=== PATIENT | female | born 1985 ===

== ENCOUNTER 2020-07-24 01:17 | Outpatient (CLI) | payer OTHER, SELFPAY ==
[2020-07-24 19:19] LABS: SARS-CoV-2 RNA PCR Negative
== END 2020-07-24 01:18 | disposition home or self-care (01) ==
LOC: ANHCOVIDDT 01:17
PROVIDERS: PCP Orthopaedic Surgery; Visit Provider Obstetrics & Gynecology
DX: Z01.812 Encounter for preprocedural laboratory examination (principal); Z20.822 Contact with and (suspected) exposure to COVID-19
CPT/HCPCS: C9803; U0003; U0005

== ENCOUNTER 2020-07-25 08:26 | Outpatient (CLI) | payer OTHER, SELFPAY ==
[2020-07-25 08:49] LABS: Hematocrit 44.9 % (37.0-47.0); Hemoglobin 14.8 g/dL (12.0-15.0); Mean Corpuscular Hemoglobin 30.6 pg (26-34); Mean Corpuscular Volume 92.8 fl (80-100); Mean Platelet Volume 9.6 fl (7.4-10.4); Platelet Count Result 272 k/mm3 (150-375); Red Blood Count 4.84 M/mm3 (4.2-5.4); Red Cell Distribution Width 12.8 % (11.5-14.5); White Blood Count 7.8 K/mm3 (4.5-10.0)
== END 2020-07-25 08:27 | disposition home or self-care (01) ==
LOC: ANHSURGERY 08:28
PROVIDERS: PCP Nurse Practitioner Family; Visit Provider Obstetrics & Gynecology
DX: D21.9 Benign neoplasm of connective and other soft tissue, unspecified (principal); Z01.812 Encounter for preprocedural laboratory examination
CPT/HCPCS: 36415; 85027; 86850; 86900; 86901

== ENCOUNTER 2020-07-27 00:22 | Day surgery (SDC) | payer OTHER, SELFPAY ==
[2020-07-24 09:41] VITALS: BMI 34.6
--- NOTE | 2020-07-24 10:04 | P.HP_ITS ---
H&P: HPI History of Present Illness Date/Time: 07/24/20 10:04 Chief Complaint: fibroids Narrative: Jigna Dumont is a 34 year old female who is admitted for robotic total value rectum E and bilateral salp ingectomy secondary to enlarged fibroid uterus. She has a uterus that appears to be about a 1000 g. Risks and benefits reviewed including not exclusive of , aspiration pneumonia, bleeding, transfusion, perforation injury to bowel, bladder, ureters, or other internal organs with need for laparotomy. She received the ACOG handout entitled hysterectomy as well as advance she handout. She had all questions answered. She asked to proceed Review of Systems Review of Systems: All systems reviewed & are unremarkable except as noted in HPI and below PMFSH Family History Family History Father Hypertension Other Cerebrovascular accident Family history of arthritis Social History Social History Smoking status: Never smoker Second hand tobacco smoke exposure: No Smoking end date: 06/22/88 Alcohol intake: current Drinks per week: 6 Substance use: never Spiritual care concerns: No Meds Home Medications and Allergies Home Medications Medication Instructions Recorded Confirmed Type ibuprofen 400 mg PO Q6H PRN 07/24/20 07/24/20 History lactobacillus combination no.8 3,000 mmu cells PO DAILY 07/24/20 07/24/20 History [Adult Probiotic] ozapsjoajqcr-iow-vrkc-FA-vit K 1 tablet PO DAILY 07/24/20 07/24/20 History [Adults Multivitamin] norethindrone (contraceptive) 0.35 mg PO DAILY 07/24/20 07/24/20 History [Incassia] Allergies Allergy/AdvReac Type Severity Reaction Status Date / Time No Known Allergies Allergy Unverified 07/24/20 09:42 Exam Const: General: no acute distress Eyes: General: appearance normal, both eyes and all related structures Neck: Neck: supple and no JVD Thyroid: thyroid normal Resp: Effort & Inspection: normal respiratory effort Auscultation: clear to auscultation bilaterally Cardio: Rate: regular rate Rhythm: regular rhythm GI: Inspection: non-distended GI Palp: Yes Soft to palpation, No Tenderness to palpation present (GI) and No Guarding due to palpation present (GI) Auscultation: normal bowel sounds : General: Yes bladder normal to inspection External Female Exam: normal external appearance Speculum Exam - Vagina: normal appearance of the vagina Speculum Exam - Cervix: normal appearance of the cervix Bimanual exam- vagina & uterus: enlarged Skin: General skin exam: no rashes or lesions noted Extrem: General: normal to inspection and no edema Psych: Mental Status: mental status grossly normal Affect: normal affect Assessment and Plan Additional Plan impression: Symptomatic uterine fibroids Plan: Robotic total vaginal hysterectomy and bilateral salpingectomy
--- NOTE | 2020-07-26 16:38 | WPDANESEPPF ---
Anes - Initial Pre Proc Eval Procedure: Operation Date: 07/27/20 07:30 Proposed Procedures p Robotic Assisted Total Vaginal Hysterectomy With Bilateral Salpingectomy - Chris Gonzalez MD Date/Time: 07/26/20 16:38 Surgeon: Chris Gonzalez MD Pre Op Diagnosis: Enlarged Uterus,Fibroids,Pain Patient Data Age: 34 Gender: F Height: 1.7 m Weight: 100.24 kg Allergies Allergy/AdvReac Type Severity Reaction Status Date / Time No Known Allergies Allergy Unverified 07/24/20 09:42 Home Medications Medication Instructions Recorded Confirmed Type ibuprofen 400 mg PO Q6H PRN 07/24/20 07/24/20 History lactobacillus combination no.8 3,000 mmu cells PO DAILY 07/24/20 07/24/20 History [Adult Probiotic] cazgyhacnxuh-bip-iryn-FA-vit K 1 tablet PO DAILY 07/24/20 07/24/20 History [Adults Multivitamin] norethindrone (contraceptive) 0.35 mg PO DAILY 07/24/20 07/24/20 History [Incassia] Patient hx anesthesia problems: none Family hx anesthesia problems: none PMFSH Past Medical History Medical History (Updated 07/26/20 @ 16:39 by Godwin Abbott MD) Obesity Family History Family History Father Hypertension Other Cerebrovascular accident Family history of arthritis Social History Social History Smoking status: Never smoker Second hand tobacco smoke exposure: No Smoking end date: 06/22/88 Alcohol intake: current Drinks per week: 6 Alcohol use details: MIXED DRINKS Substance use: never Living arrangements: with family Spiritual care concerns: No Anes - Eval Final PreProcedure Day of Procedure 07/26/20 16:38 Patient weight: obese Heart: regular rate and rhythm Lungs: clear to auscultation and normal air movement Airway: Mallampati scale class II Neurological: alert and oriented Last oral intake: >/= 8 hours ASA classification: II Emergent: no Anesthetic plan: proceed Anesthesia type and monitoring: general ETT Informed Consent: The patient's anesthetic plan and its attendant risks and benefits were discussed with the patient/family/POA. Questions were solicited and answers provided to the satisfaction of the patient/family/POA.
[2020-07-27] VITALS (16 sets, daily range): BP systolic 109–154; BP diastolic 66–98; PULSE 73–111; RESP 14–18; TEMP 36.2–37.2; O2SAT 93–100
[2020-07-27] MEDS: KETOROLAC 15 MG/ML VIAL (*BKC) IV PUSH (06:32)
[2020-07-27] MEDS: ACETAMINOPHEN 500 MG TABLET 1000 MG PO (06:32)
[2020-07-27] MEDS: LACTATED RINGERS 1,000 ML 30 ML IV CONT ×2 (06:38→09:27)
--- NOTE | 2020-07-27 07:00 | WPDHPUPDATE1 ---
History and Physical Update Update Date/Time: 07/27/20 07:00 History and Physical has been reviewed, including an updated exam of the patient. There are NO changes in the patient's condition. Risks, benefits, and alternatives have been discussed and questions answered. Patient agrees to proceed with procedure.
[2020-07-27] MEDS: ceFAZolin 2 GM/D5W 50 ML 2 GM/50 ML BAG IVPB (07:24)
--- NOTE | 2020-07-27 09:19 | P.OP_ITS ---
Procedure Note - Detailed Date of procedure: 07/27/20 Pre-op diagnosis: Enlarged Uterus,Fibroids,Pain Surgeon: Chris Gonzalez MD Postop diagnosis: Enlarged uterus/fibroids/pain Procedure: Robotic total vaginal hysterectomy and bilateral salpingectomies Anesthesia: General endotracheal EBL: 25cc Complications: None Findings: Uterus with multiple large fibroids weighing more than 500 g. Normal-appearing tubes and ovaries Description of procedure the patient was prepped and draped in the normal sterile fashion placed in dorsal lithotomy position. Excellent general endotracheal anesthesia weighted speculum placed in posterior fornix of vagina. Anterior lip of the cervix was grasped with single-tooth tenaculum uterus sounded to 11cm. Serial dilatation with fragmented dilators performed followed passed in the 10. GRIFFIN and 3. Cold cup. A 16 [place] catheter placed in bladder draining clear urine. The weighted speculum was removed. The gloves were changed. A supraumbilical incision made the Veress needle passed in the abdomen. The abdomen filled with CO2 gas [id number]. The 8mm trocar advanced in the abdomen. The downside visualized and no injury seen. The patient was placed in Trendelenburg and right left lateral quadrant incisions made. 8mm trocars were advanced under direct visualization assuring no injury. The right upper quadrant incision made the 8mm trocar advanced in the abdomen under direct visualization assuring no injury. The robot was docked. Attention was turned to the console. The uterus was noted be large with multiple large fibroids. The ovaries limits as did the tubes. The left round ligament was grasped, burned, cut. Anteriorly a bladder flap was formed by sharply dissecting the peritoneum above and reflecting it caudally away from the cervix and uterus to the opposite round ligament was clamped, burned, cut. Next the left fallopian tube was skeletonized and removed from the ovary. In like fashion the right fallopian tube was removed the left utero-ovarian ligament was skeletonized to conserve the left ovary this was serially clamped, burned, cut and brought to the level of the previously cut round ligament. Conserving the right ovary the utero-ovarian ligament was clamped, burned, cut and brought to the level of the previously cut round ligament. Difficulty was encountered due to the large irregular fibroids however the cardinal and broad ligaments on the left were serially skeletonized. These were clamped, burned, cut and brought down to the level of the uterine vessels. The uterine vessels were large and tortuous in each was individually clamped, burned, cut. In like fashion the cardinal and broad ligaments on the right were serially skeletonized. These were clamped, burned, and brought down the lateral edge of the uterus to the uterine vessels. These were large and tortuous as well. These were serially clamped, burned, cut individually. Hemostasis was assured and the uterus blanched multiple incisions were undertaken to loosen the large 5-6 to 10cm fibroids the to facilitate removal through the vagina. The a colpotomy incision was made and the cervix uterus and tubes removed through the vagina and fashion consistent with an ice cream cone. The vagina was then closed with continuous running 0V lock from lateral edge to lateral edge back to the midline. Irrigation undertaken and the pedicles and noted be clear the presents for angle with [place] term. The robot was undocked. The gas removed from the abdomen. The incisions closed with 4 O Monocryl and glue in the abdomen. All sponge needle and instrument counts were correct. The patient was awakened and went to recovery in satisfactory condition.
[2020-07-27] MEDS: HYDROmorphone HCL INJ (*CRX) 1 MG/ML SYR 0.25 MG IV PUSH ×4 (09:53→10:12)
--- NOTE | 2020-07-27 10:38 | PC.NURSE ---
This patient, Jigna Dumont, was received from PACU on 07/27/20 at 1038. Patient/family oriented to unit policies and routines
[2020-07-27] MEDS: DEXTROSE 5%/LACTATED RINGERS 1,000 ML 125 ML IV CONT ×2 (11:14→18:55)
[2020-07-27] MEDS: KETOROLAC 30 MG/ML VIAL (*BKC) IV PUSH ×3 (11:14→23:37)
[2020-07-27] MEDS: ONDANSETRON INJ 4 MG/2 ML VIAL IV PUSH ×2 (13:50→19:38)
[2020-07-27] MEDS: MORPHINE SULFATE (*CRX) 4 MG/ML INJ IV PUSH (19:30)
[2020-07-28 04:10] VITALS: BP 136/88; PULSE 90; RESP 18; TEMP 36.7; O2SAT 100
[2020-07-28] MEDS: KETOROLAC 30 MG/ML VIAL (*BKC) IV PUSH ×2 (05:26→11:37)
[2020-07-28 05:50] LABS: Basophils Percent Auto 0.3 % (0.2-1.2); Eosinophils Percent Auto 0.1 % (0-4.4); Hematocrit 40.1 % (37.0-47.0); Hemoglobin 13.1 g/dL (12.0-15.0); Immature Granulocyte Absolute 0.03 K/mm3 (0.00-0.031); Immature Granulocyte Percent A 0.2 % (0-0.5); Lymphocytes Absolute Auto 2.23 K/mm3 (0.9-3.2); Lymphocytes Percent Auto 16.5 % (18.3-44.2); Mean Corpuscular HGB Conc 32.7 g/dl (32-36); Mean Corpuscular Hemoglobin 30.4 pg (26-34); Mean Platelet Volume 9.9 fl (7.4-10.4); Neutrophils Absolute Auto 10.2 K/mm3 (1.3-6.7); Neutrophils Percent Auto 75.9 % (45.5-73.1); Platelet Count Result 261 k/mm3 (150-375); Red Blood Count 4.31 M/mm3 (4.2-5.4); Red Cell Distribution Width 13.1 % (11.5-14.5); White Blood Count 13.5 K/mm3 (4.5-10.0)
[2020-07-28 08:25] VITALS: BP 110/71; PULSE 104; RESP 18; TEMP 37.3; O2SAT 95
--- NOTE | 2020-07-28 08:32 | PM.GYNPNOP ---
MICRO LAB ANALYST - A/P Postoperative Procedures: Procedures Operation Date: 07/27/20 07:30 Actual Procedures Side Surgeon p Robotic Assisted Total Vaginal Hysterectomy With Bilateral Salpingectomy Chris Gonzalez MD A: POD#1, doing well. P: Home today. F/u 2 weeks. Time Spent With Patient Time with patient: less than 15 minutes MICRO LAB ANALYST- PN:Subj Post-Op Subjective Date/time seen: 07/28/20 08:32 Interval history: Pain OK. Tolerating diet. Voiding. Would like to go home. Exam Narrative: Exam Narrative: AVSS I/O OK ABD soft, nontender. Incisions c/d/i. EXT nontender MICRO LAB ANALYST - PN: Obj Data Vital Signs Vital Signs: Vital Signs - 24 hr 07/27/20 09:27 07/27/20 09:40 07/27/20 09:55 Temperature 36.9 C Pulse Rate 73 79 94 Respiratory Rate 15 14 14 Blood Pressure 109/66 126/81 133/89 Pulse Oximetry 97 100 99 07/27/20 10:10 07/27/20 10:25 07/27/20 10:53 Temperature 36.8 C Pulse Rate 93 95 92 Respiratory Rate 14 14 16 Blood Pressure 132/80 133/87 127/74 Pulse Oximetry 97 97 95 07/27/20 11:00 07/27/20 11:15 07/27/20 11:30 Temperature 36.4 C Pulse Rate 92 96 90 Respiratory Rate 16 16 16 Blood Pressure 128/75 122/76 136/78 Pulse Oximetry 93 93 97 07/27/20 12:00 07/27/20 13:00 07/27/20 14:00 Temperature 36.9 C Pulse Rate 100 101 H 107 H Respiratory Rate 16 16 16 Blood Pressure 128/81 131/84 135/88 Pulse Oximetry 96 96 97 07/27/20 16:00 07/27/20 19:38 07/27/20 23:35 Temperature 36.6 C 36.2 C L 37.2 C Pulse Rate 111 H 110 H 107 H Respiratory Rate 18 16 18 Blood Pressure 134/93 H 141/90 H 137/67 Pulse Oximetry 96 98 100 07/28/20 04:10 Temperature 36.7 C Pulse Rate 90 Respiratory Rate 18 Blood Pressure 136/88 Pulse Oximetry 100 Intake/Output Intake/Output: Intake & Output 07/25/20 07/26/20 07/27/2006/21 23:59 23:59 23:59 23:59 Intake Total 1650 240 Output Total 1750 750 Balance -100 -510 Meds/Results Medications: Active Medications Generic Name Dose Route Start Last Admin Trade Name Freq PRN Reason Stop Dose Admin Hydrocodone Bitart/Acetaminophen 1 tab 07/27/20 10:33 Hydrocodone/Acetaminophen (*Crx) 5-325 Mg Tablet PO Q3H PRN Pain Rated 5 or Less Hydrocodone Bitart/Acetaminophen 1 tab 07/27/20 10:33 Hydrocodone/Acetaminophen (*Crx) 10-325 Mg Tablet PO Q3H PRN Pain Rated 6 or Greater Docusate Sodium 100 mg 07/27/20 17:00 07/27/20 17:53 Docusate Sodium 100 Mg Capsule PO Not Given BID DARIO Enoxaparin Sodium 40 mg 07/28/20 09:00 Enoxaparin 40 Mg/0.4 Ml Syringe SUB-Q DAILY DARIO Dextrose/Lactated Ringer's 1,000 mls @ 125 mls/hr 07/27/20 10:33 07/27/20 18:55 Dextrose 5%/Lactated Ringers IV CONT 125 mls/hr .Q8H DARIO Administration Ibuprofen 600 mg 07/27/20 10:33 Ibuprofen 600 Mg Tablet PO Q6H PRN Cramping Ketorolac Tromethamine 30 mg 07/27/20 10:33 07/28/20 05:26 Ketorolac 30 Mg/Ml Vial (*Bkc) IV PUSH 08/01/20 10:34 30 mg Q6H PRN Administration Pain Rated 4-6 Metoclopramide HCl 10 mg 07/27/20 21:47 Metoclopramide Hcl Inj 10 Mg/2 Ml Vial IV PUSH Q6HR PRN Nausea And Vomiting Morphine Sulfate 4 mg 07/27/20 10:33 07/27/20 19:30 Morphine Sulfate (*Crx) 4 Mg/Ml Inj IV PUSH 4 mg Q4H PRN Administration Severe breakthrough pain Naloxone HCl 0.1 mg 07/27/20 10:33 Naloxone Hcl 0.4 Mg/Ml Vial IV PUSH Q2M PRN Respiratory rate less than 10 Ondansetron HCl 4 mg 07/27/20 10:33 07/27/20 19:38 Ondansetron Inj 4 Mg/2 Ml Vial IV PUSH 4 mg Q6H PRN Administration Nausea And Vomiting Simethicone 80 mg 07/27/20 10:33 Simethicone 80 Mg Tab.Chew PO Q2H PRN Gas Labs CBC & Chem 7: 07/28/20 04:16 Labs: Laboratory Results - last 24 hr 07/28/20 04:16 WBC 13.5 H RBC 4.31 Hgb 13.1 Hct 40.1 MCV 93.0 MCH 30.4 MCHC 32.7 RDW 13.1 Plt Count 261 MPV 9.9 Immature Gran % (A
--- NOTE | 2020-07-28 08:32 | PM.DS ---
DS: Admitting Diagnosis Admitting Diagnosis Admitting Diagnosis: Symptomatic fibroid uterus DS: Discharge Diagnosis Discharge Diagnosis (1) Fibroid, uterine: Code(s): D25.9 - Leiomyoma of uterus, unspecified Status: Acute DS: Summary Hospital Course Hospital Course: Admitted for surgery. Home on POD #1. Time Spent with Patient Time attestation: Total time spent providing and/or coordinating discharge services: DS: Data Data Completed and Pending Pending studies at discharge: Pending at discharge 07/27/20 08:54 Surgical [PTH] Routine Labs on day of discharge: Labs from last 24 hours 07/28/20 04:16 WBC 13.5 H RBC 4.31 Hgb 13.1 Hct 40.1 MCV 93.0 MCH 30.4 MCHC 32.7 RDW 13.1 Plt Count 261 MPV 9.9 Immature Gran % (Auto) 0.2 Neut % (Auto) 75.9 H Lymph % (Auto) 16.5 L [place] % (Auto) 7.0 Eos % (Auto) 0.1 Baso % (Auto) 0.3 Lymph # (Auto) 2.23 [place] # (Auto) 1.0 H Eos # (Auto) 0.0 Baso # (Auto) 0.0 Abs Immat Gran (auto) 0.03 Absolute Neuts (auto) 10.2 H Absolute Nucleated RBC 0.0 Nucleated RBC % 0.0 Discharge Plan Discharge Patient Disposition: Home, Self-Care Discharge Instructions: Call or return if temperature above 100.4? F, increased abdominal pain, increased vaginal bleeding or any new problems. Stand Alone Forms: General Discharge Instructions Follow-up/Referrals: Chris Gonzalez MD [Physician] - 2 Weeks Discharge Medications: New hydrocodone-acetaminophen 5-325 mg tablet 1 tablet PO Q4H PRN (Reason: pain) Qty: 30 RF: 0 No Action ibuprofen 200 mg Tablet 400 mg PO Q6H PRN (Reason: PAIN) RF: 0 norethindrone (contraceptive) [Incassia] 0.35 mg tablet 0.35 mg PO DAILY RF: 0 Adult Probiotic 3 billion cell Capsule 3,000 mmu cells PO DAILY RF: 0 Adults Multivitamin 18 mg iron-400 mcg-25 mcg Tablet 1 tablet PO DAILY RF: 0
--- NOTE | 2020-07-28 08:42 | WPDANESPN ---
Anes - Prog Note Post-Op Date/Time: 07/28/20 08:42 Cardiovascular status: normal Respiratory status: normal Airway patency: baseline Mental status: baseline Vital Signs: Last Vital Signs Temp 36.7 C 07/28/20 04:10 Pulse 90 07/28/20 04:10 Resp 18 07/28/20 04:10 BP 136/88 07/28/20 04:10 Pulse Ox 100 07/28/20 04:10 Pain Score (VAS): no complaints I/O: Intake & Output 07/27/20 07/28/20 07/28/20 23:59 07:59 15:59 Intake Total 1200 240 Output Total 1350 750 Balance -150 -510 Laboratory Tests 07/28/20 04:16 07/28/20 04:16 WBC 13.5 H RBC 4.31 Hgb 13.1 Hct 40.1 MCV 93.0 MCH 30.4 MCHC 32.7 RDW 13.1 Plt Count 261 MPV 9.9 Immature Gran % (Auto) 0.2 Neut % (Auto) 75.9 H Lymph % (Auto) 16.5 L [place] % (Auto) 7.0 Eos % (Auto) 0.1 Baso % (Auto) 0.3 Lymph # (Auto) 2.23 [place] # (Auto) 1.0 H Eos # (Auto) 0.0 Baso # (Auto) 0.0 Abs Immat Gran (auto) 0.03 Absolute Neuts (auto) 10.2 H Absolute Nucleated RBC 0.0 Nucleated RBC % 0.0 Post-procedural complaints: none Patient Feedback: Patient satisfied with anesthetic care.
[2020-07-28] MEDS: HYDROcodone/acetaminophen (*CRX) 10-325 MG TABLET 1 TAB PO (11:36)
[2020-07-28] MEDS: DOCUSATE SODIUM 100 MG CAPSULE PO (11:37)
[2020-07-28] MEDS: ENOXAPARIN 40 MG/0.4 ML SYRINGE SUB-Q (11:39)
== END 2020-07-28 11:50 | disposition home or self-care (01) ==
LOC: ANHSURGERY 05:59 → ANHOB2 10:57
PROVIDERS: PCP Nurse Practitioner Family; Visit Provider Obstetrics & Gynecology
PROC: (CPT 58554; principal; 2020-07-27 07:30)
DX: D25.1 Intramural leiomyoma of uterus (principal); D25.0 Submucous leiomyoma of uterus; D25.2 Subserosal leiomyoma of uterus; N83.8 Other noninflammatory disorders of ovary, fallopian tube and broad ligament; N80.0 Endometriosis of uterus; E66.9 Obesity, unspecified; Z68.33 Body mass index [BMI] 33.0-33.9, adult
CPT/HCPCS: 58554; S2900; 36415; 85025; 85027; 86850; 86900; 86901; 88307; 99199; A9270; C9803; J0690; J1100; J1170; J1650; J1885; J2250; J2270; J2405; J2704; J2710; J3010; J7030; J7120; J7121; U0003; U0005

== ENCOUNTER 2021-01-06 08:39 | Emergency (ER) | payer OTHER, SELFPAY ==
[2021-01-06 08:48] VITALS: BP 137/91; PULSE 89; RESP 16; TEMP 36.8; O2SAT 99
--- NOTE | 2021-01-06 09:02 | ED.GENADULT ---
HPI - General Adult General Chief complaint: Back Pain/Injury Stated complaint: lower back pain Time Seen by Provider: 01/06/21 08:54 Source: patient and RN notes reviewed Mode of arrival: ambulatory Limitations: no limitations History of Present Illness HPI narrative: 35-year-old female presents with complaints of increasing right lower back pain upon arising for 1 day. Jigna reports back pain upon waking in the am daily, increasing pain today. ?Ibuprofen 400mg, last on 01/05/2021 without relief. Believes symptoms are related to bed mattress, awaiting new one to arrive. Denies new injuries or falls. ?Denies radiating pain, numbness, or tingling. Denies fever or chills. ?No upper or lower extremity pain or weakness. ?Exacerbating factors consist of getting in and out of the car and turning. Denies nausea, vomiting, or abdominal pain. Denies problems with urinating or having a bowel movement, LBM this morning per patient and normal. No flank pain or hematuria or dysuria. ?LMP hysterectomy. ?Remains active. ?The patient reports she has not been diagnosed with COVID-19. ?The patient reports she is not waiting for the results of a COVID-19 lab test. The patient reports she does not have weakness, fatigue, or myalgia. The patient reports he does not have a new or worsening cough or shortness of breath. ?The patient reports he does not have any rhinorrhea, congestion, loss of taste, sore throat, and diarrhea. ?Denies recent traveling. ?Denies concerns for COVID-19 or exposures. At this time, the patient is not suspected of having COVID-19. Some parts of this dictation were generated by voice recognition software and may contain typographical and/or grammatical inaccuracies. Related Data Allergies Allergy/AdvReac Type Severity Reaction Status Date / Time No Known Allergies Allergy Verified 01/06/21 08:55 Review of Systems Review of Systems: Narrative: CONSTITUTIONAL: Denies fever, chills, sweats. EYES: Denies visual changes, redness, discharge. ENT: Denies rhinorrhea, congestion, sore throat, otalgia. CARDIOVASCULAR: Denies chest pain, palpitations, edema. RESPIRATORY: Denies dyspnea, wheezing, cough. GASTROINTESTINAL: Denies abdominal pain, nausea, vomiting, diarrhea. GENITOURINARY: Denies dysuria, hematuria, abnormal discharge. SKIN: Denies rash or itching. MUSCULOSKELETAL: Complains of RT lower back pain. Denies joint pain or myalgia. NEUROLOGIC: Denies numbness or focal weakness. PSYCHIATRIC: Denies anxiety or depression. All systems reviewed & are unremarkable except as noted in HPI and below. [facility] Past Medical History Medical History (Updated 01/07/21 @ 00:01 by Ken Oh) Fibroid, uterine Obesity Surgical History Surgical History (Updated 01/06/21 @ 09:25 by SHAILA Horne) History of hysterectomy History of total knee arthroplasty RT knee Family History Family History (Updated 01/06/21 @ 09:07 by SHAILA Horne) Father Hypertension Mother Hypertension Diabetes mellitus Other Cerebrovascular accident Family history of arthritis Social History Social History (Updated 01/06/21 @ 09:07 by SHAILA Horne) Smoking status: Never smoker Tobacco type: cigarettes Second hand tobacco smoke exposure: No Smoking end date: 06/22/88 Alcohol intake: current Drinks per week: 6 Alcohol use details: MIXED DRINKS Substance use: never Substance use type: does not use Living arrangements: with family Occupation/Education: occupation Gender identity (if verbalized by the patient): Female Spiritual care concerns: No Comments At time of signature, agree with the nurse past medical, surgical, social, and family history. There is no relevant family history pertinent to the presenting complaint. Exam Narrative: Exam Narrative: GENERAL: This is a well-nourished, well-developed patient, in no apparent distress. Talks in full sentences without defic
[2021-01-06] MEDS: KETOROLAC (*BKC) 60 MG/2 ML VIAL IM (09:16)
== END 2021-01-06 09:25 | disposition home or self-care (01) ==
PROVIDERS: Emergency Provider Nurse Practitioner Family
DX: M54.5 Low back pain (principal)
CPT/HCPCS: 81003; 96372; 99213; G0463; J1885

== ENCOUNTER 2022-03-18 18:21 | Emergency (ER) | payer OTHER, SELFPAY ==
--- NOTE | ~2022-03-18 | XR_ITS ---
EXAMINATION: XR hand RT min 3V DATE: 03/18/2022 18:47 INDICATION: Pain and bruising to the anterior right wrist and palm of the hand TECHNIQUE: Posteroanterior, oblique and lateral views of the right hand were obtained. COMPARISON: None. FINDINGS: Alignment is normal. No fracture. Joint spaces are normal. Soft tissues are unremarkable. IMPRESSION: 1. No osseous abnormality. Reviewed, dictated and finalized at location A. IMPRESSION: 1. No osseous abnormality.
[2022-03-18 18:34] VITALS: BP 145/93; PULSE 81; RESP 16; TEMP 36.1; O2SAT 100
--- NOTE | 2022-03-18 18:50 | ED.UPPEXIN ---
HPI - Extremity Injury (Upper) General Chief Complaint: Extremity Injury, Upper Stated Complaint: Right Hand Pain Time Seen by Provider: 03/18/22 18:50 Source: patient Mode of arrival: ambulatory Limitations: no limitations History of Present Illness HPI narrative: is a 36-year-old female patient presenting to the clinic today with complaints of right hand pain. 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 Related Data Allergies Allergy/AdvReac Type Severity Reaction Status Date / Time No Known Allergies Allergy Verified 01/06/21 08:55 Review of Systems Review of Systems: Pertinent positives per HPI. Patient denies any fever, chills, rash, headache, visual changes, dizziness, cough, runny nose, sore throat, shortness of breath, chest pain, palpitations, nausea, vomiting, diarrhea, constipation, abdominal pain, or any urinary issues. PMFSH Past Medical History Medical History Fibroid, uterine Obesity Surgical History Surgical History History of hysterectomy History of total knee arthroplasty RT knee Family History Family History Father Hypertension Mother Hypertension Diabetes mellitus Other Cerebrovascular accident Family history of arthritis Social History Social History Smoking status: Never smoker Tobacco type: cigarettes Second hand tobacco smoke exposure: No Smoking end date: 06/22/88 Alcohol intake: current Drinks per week: 6 Alcohol use details: MIXED DRINKS Substance use: never Substance use type: does not use Gender identity (if verbalized by the patient): Female Spiritual care concerns: No Comments At the time of my signature, I reviewed and agree with the nursing past medical, surgical, social, and family history. There is no relevant family history pertinent to the patient complaint. Course Course Emergency Course: Portions of this record may have been created with voice recognition software. Level of Care: Express Care Visit Vital Signs Vital signs: Vital Signs Temperature 36.1 C L 03/18/22 18:34 Pulse Rate 81 03/18/22 18:34 Respiratory Rate 16 03/18/22 18:34 Blood Pressure 145/93 H 03/18/22 18:34 Pulse Oximetry 100 03/18/22 18:34 Oxygen Delivery Room Air 03/18/22 18:34 Temperature 36.1 C L 03/18/22 18:34 Pulse Rate 81 03/18/22 18:34 Respiratory Rate 16 03/18/22 18:34 Blood Pressure 145/93 H 03/18/22 18:34 Pulse Oximetry 100 03/18/22 18:34 Oxygen Delivery Room Air 03/18/22 18:34 Vital signs reviewed MDM - Extremity Injury (Upper) MDM Narrative Medical decision making narrative: At the time of visit patient is resting comfortably on the exam table. X-ray was negative for any fracture or malalignment of the right hand. I suspect patient has an sprain. Supportive measures were discussed with the patient and she voiced understanding of discharge instructions and agrees to treatment plan. Differential Diagnosis Differential diagnosis: Likely fracture of hand and other (Hand sprain, contusion) Imaging Data Radiologist's impression: Close Hand X-Ray (Signed) Evin Wilson - 03/18/22 [facility] [address] [address] XRay Report Signed Patient: Jigna Dumont : 1985 MR#: [id number] Age/Sex: 36 / F Acct:[id number] Loc: [facility]? ? ADM Date: 03/18/22Attending Dr: Ordering Physician: Lalo Ellintgon APRN Date of Service: 03/18/22 Procedure(s): XR hand RT
== END 2022-03-18 19:20 | disposition home or self-care (01) ==
PROVIDERS: Emergency Provider Nurse Practitioner Family; PCP Nurse Practitioner Family
DX: S63.91XA Sprain of unspecified part of right wrist and hand, initial encounter (principal); X58.XXXA Exposure to other specified factors, initial encounter; E66.9 Obesity, unspecified; Z68.35 Body mass index [BMI] 35.0-35.9, adult; Z87.891 Personal history of nicotine dependence
CPT/HCPCS: 73130; 99213; G0463

== ENCOUNTER 2023-05-31 11:12 | Emergency (ER) | payer OTHER, SELFPAY ==
[2023-05-31 11:23] VITALS: BP 146/109; PULSE 94; RESP 16; TEMP 36.8; O2SAT 100
[2023-05-31 12:15] VITALS: BP 138/86
--- NOTE | 2023-05-31 12:15 | ED.GENADULT ---
HPI - General Adult General Chief complaint: Upper Respiratory Infection Stated complaint: Sinus Source: patient Mode of arrival: ambulatory Limitations: no limitations History of Present Illness HPI narrative: Patient presents for evaluation of sinus symptoms for the past week. Symptoms include sinus congestion, thick green drainage, and frontal headache. No fever, chills, sore throat, otalgia, cough, shortness of breath. No recent sick contacts to her knowledge. She does not smoke. She has tried mucinex and sudafed for her symptoms. Related Data Allergies Allergy/AdvReac Type Severity Reaction Status Date / Time No Known Allergies Allergy Verified 05/31/23 11:22 Review of Systems Review of Systems: CONSTITUTIONAL: Denies fever, chills, or sweats. EYES: Denies visual changes, redness, or discharge. ENT: Reports bilateral maxillary and frontal sinus congestion/pain. Denies sore throat or ear pain. CARDIOVASCULAR: Denies chest pain, palpitations, or edema. RESPIRATORY: Denies cough or dyspnea. GASTROINTESTINAL: Denies abdominal pain, nausea, vomiting, or diarrhea. GENITOURINARY: Denies dysuria or hematuria. SKIN: Denies rash or itching. MUSCULOSKELETAL: Denies back pain, joint pain, or myalgia. NEUROLOGIC: Reports headache. Deniesnumbness, dizziness, or weakness. PSYCHIATRIC: Denies anxiety or depression. [facility] Past Medical History Medical History Fibroid, uterine Obesity Surgical History Surgical History History of hysterectomy History of total knee arthroplasty RT knee Family History Family History Father Hypertension Mother Hypertension Diabetes mellitus Other Cerebrovascular accident Family history of arthritis Social History Social History (Updated 05/31/23 @ 12:20 by SHAILA Martin, ) Smoking status: Never smoker Second hand tobacco smoke exposure: No Smoking end date: 06/22/88 Alcohol intake: current Drinks per week: 6 Alcohol use details: MIXED DRINKS Substance use: never Substance use type: does not use Living arrangements: with family Occupation/Education: occupation Gender identity (if verbalized by the patient): Female Spiritual care concerns: No Exam Narrative: GENERAL: Well-appearing, well-nourished, and in no acute distress. HEAD: Normocephalic, atraumatic. EYES: PERRLA and EOMI. ENT: Nares clear, no rhinorrhea or epistaxis. Mucous membranes moist. Oropharynx without tonsillar hypertrophy exudate or other lesions. Bilateral TMs pearly joshi nonbulging. Frontal and bilateral maxillary sinus tenderness NECK: Supple. No adenopathy or masses. No carotid bruits or JVD CHEST: Clear to auscultation. No respiratory distress. No wheezes rales or rhonchi HEART: Regular rate and rhythm. No murmur heard. Normal peripheral pulses. ABDOMEN: Soft, nontender, nondistended, normal active bowel sounds. EXTREMITIES: Normal range of motion. No edema. SKIN: Warm, dry, no rash. NEURO: No focal deficits. Alert and oriented x3. PSYCH: Normal mood and affect. Course Course Emergency Course: this is a 37-year-old female who presented for evaluation of sinus congestion is thick green drainage from ears for within a week. She meets criteria for bacterial sinusitis based on quality of discharge in duration of time for which she has been symptomatic. Will dc with augmentin. Increase hydration. OTC agents for symptom management. Follow up with primary provider. Go to the ER for worsening symptoms. Pt in agreement with plan of care. Level of Care: Express Care Visit Vital Signs Vital signs: Vital Signs Temperature 36.8 C 05/31/23 11:23 Pulse Rate 94 05/31/23 11:23 Respiratory Rate 16 05/31/23 11:23 Blood Pressure 146/109 H 05/31/23 11:23 Pulse Ox
== END 2023-05-31 12:15 | disposition home or self-care (01) ==
PROVIDERS: Emergency Provider Nurse Practitioner; PCP Nurse Practitioner Family
DX: J01.00 Acute maxillary sinusitis, unspecified (principal); Z87.891 Personal history of nicotine dependence; E66.9 Obesity, unspecified; Z68.37 Body mass index [BMI] 37.0-37.9, adult
CPT/HCPCS: 99213; G0463